=== PATIENT | male | born 1985 | race Caucasian/White ===

== ENCOUNTER 2019-05-25 17:54 | Emergency (ER) | payer MEDICAID ==
[2019-05-25] MEDS: Iopamidol 755 MG/ML 150 ML Bottle IV ONE (19:30)
[2019-05-25] MEDS: Sodium Chloride 0.9% 1,000 ML IV ONE (19:38)
[2019-05-25] MEDS: Sodium Chloride 0.9% 10 ML Syringe FLUSH PRN (19:39)
[2019-05-25] MEDS: Ondansetron 4 MG/2 ML SDV IVPUSH ONE (19:42)
[2019-05-25] MEDS: Morphine 2 MG/ML Syringe IVPUSH ONE (19:42)
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
[2019-05-25] MEDS: Sodium Chloride 0.9% 1,000 ML IV SCH (22:50)
== END 2019-05-25 23:15 ==
LOC: FB.ED 17:54
DX: K51.911 Ulcerative colitis, unspecified with rectal bleeding (principal); I26.99 Other pulmonary embolism without acute cor pulmonale; K92.1 Melena; I10 Essential (primary) hypertension; Z90.49 Acquired absence of other specified parts of digestive tract; F17.210 Nicotine dependence, cigarettes, uncomplicated; Z79.899 Other long term (current) drug therapy; Z79.01 Long term (current) use of anticoagulants; Z86.718 Personal history of other venous thrombosis and embolism
CPT/HCPCS: 36415; 71275; 74177; 80053; 81001; 83690; 83735; 84484; 85025; 85610; 85730; 86140; 93005; 96361; 96374; 96375; 99285-25; J2270; J2405; J7030; Q9967

== ENCOUNTER 2019-05-31 21:49 | Emergency (ER) | payer MEDICAID ==
[2019-05-31] MEDS ORDERED: Pantoprazole 40 MG Vial IVPUSH ONE (22:01)
[2019-05-31] MEDS ORDERED: Sodium Chloride 0.9% 10 ML Syringe FLUSH PRN (22:01)
--- NOTE | 2019-05-31 22:09 | EDM.PDOC ---
ED HPI GENERAL MEDICAL PROBLEM - General Chief Complaint: Abdominal Pain Stated Complaint: BLOOD CLOT ISSUES Time Seen by Provider: 05/31/19 22:04 Source of Information: Reports: Patient History Limitations: Reports: No Limitations - History of Present Illness INITIAL COMMENTS - FREE TEXT/NARRATIVE: Patient has a h/o Pulmonary Emboli and LLE DVT (diagnosed @5 weeks ago at [facility]). The patient also has a history of Ulcerative Colitis and was transferred from this facility to [facility] on 05/25/19 due to rectal bleeding in the setting of pulmonary emboli. He was discharged on a Prednisone taper, Lovenox and Coumadin, although it does not look like he was placed on a prophylactic PPI. Today he presents to the ED with a 2 day history of generalized abdominal pain with tarry black stool with specks of red blood. Patient believes the pain is secondary to Lovenox. He denies diarrhea. Onset Date: 05/30/19 Duration: Day(s): (2) Location: Reports: Abdomen Quality: Reports: Dull Severity: Moderate Associated Symptoms: Denies: Nausea/Vomiting - Related Data Allergies Allergy/AdvReac Type Severity Reaction Status Date / Time No Known Allergies Allergy Verified 05/25/19 19:08 Home Meds: Home Meds Enoxaparin [Lovenox] 150 mg SQ BID 05/31/19 [History] Pantoprazole Sodium [Protonix] 40 mg PO DAILY #15 tablet. 05/31/19 [Rx] Warfarin Sodium [Coumadin] 7.5 mg PO DAILY 05/31/19 [History] Past Medical History Cardiovascular History: Reports: Afib, Blood Clots/VTE/DVT, Hypertension Other Cardiovascular History: blood clot in legs Respiratory History: Reports: PE, Sleep Apnea Gastrointestinal History: Reports: Inflammatory Bowel Disease (Ulcerative colitis) Other Gastrointestinal History: ulcerative colitis Hematologic History: Reports: Anticoagulation Therapy (Has not been on his Eliquis for the past 1-1/2 weeks.) - Past Surgical History Cardiovascular Surgical History: Reports: Cardiac Ablation GI Surgical History: Reports: Appendectomy, Colonoscopy (Time 7) Social & Family History - Tobacco Use Smoking Status *Q: Current Every Day Smoker Tobacco Use Within Last Twelve Months: Cigarettes - Alcohol Use Alcohol Use History: No - Living Situation & Occupation 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 ED EXAM, GI/ABD - Physical Exam Exam: See Below Exam Limited By: No Limitations General Appearance: Alert, WD/WN, No Apparent Distress Ears: Normal External Exam Throat/Mouth: No Airway Compromise Head: Atraumatic, Normocephalic Neck: Full Range of Motion Respiratory/Chest: No Respiratory Distress, Lungs Clear, Normal Breath Sounds Cardiovascular: Regular Rate, Rhythm, No Murmur GI/Abdominal Exam: Normal Bowel Sounds, Soft, No Distention, Tender (Epigastric and RLQ) Rectal (Males) Exam: Heme - Stool, Other (Brown stool in the rectal vault) Extremities: Normal Range of Motion Neurological: Alert, Normal Cognition, No Motor/Sensory Deficits Skin Exam: Warm, Dry, Intact Course - Vital Signs Last Recorded V/S: Last Vital Signs Temp 36.8 C 05/31/19 22:30 Pulse 105 H 05/31/19 22:30 Resp 20 05/31/19 22:30 BP 118/76 05/31/19 22:30 Pulse Ox 98 05/31/19 22:30 - Orders/Labs/Meds Orders: Active Orders 24 hr Category Date Time Status Abdomen Pelvis w Cont [CT] Stat Exams 05/31/19 22:57 Ordered Sodium Chloride 0.9% [Saline Flush] Med 05/31/19 22:01 Active 10 ml FLUSH ASDIRECTED PRN Saline Lock Insert [OM.PC] Routine Oth 05/31/19 22:01 Ordered Medication Orders Sodium Chloride (Saline Flush) 10 ml FLUSH ASDIRECTED PRN PRN Reason: Keep Vein Open Last Admin: 05/31/19 22:50 Dose: 10 ml Labs: Laboratory Tests 05/31/19 05/31/19 05/31/19 Range/Units 22:15 22:15 22:15 WBC 10.4 (4.5-12.0) X10-3/uL RBC 5.02 (4.30-5.75) x10(6)uL Hgb 10.6 L (13.5-17.8) g/dL Hct 33.7 (30.0-51.3) % MCV 67.2 L (80-96) fL MCH 21.1 L (27.7-33.6) pg MCHC 31.5 L (32.2-35.4) g/dL RDW 18.4 H (11.5-15.5) % Plt Count 578 H (125-369) X10(3)uL MPV 7.1 L (7.4-10.4) fL Add Manual Diff Yes Neutrophils % (Manual) 62 (46-82) % Lymphocytes % (Manual) 23 (13-37) % Monocytes % (Manual) 5 (4-12) % Eosinophils % (Manual) 10 H (0-5) % Hypochromasia Few Anisocytosis Few Microcytosis Moderate H PT 15.1 H (8.7-11.1) INR 1.57 H (0.89-1.13) Sodium 139 (135-145) mmol/L Potassium 4.2 (3.5-5.3) mmol/L Chloride 103 (100-110) mmol/L Carbon Dioxide 29 (21-32) mmol/L BUN 14 (7-18) mg/dL Creatinine 0.9 (0.70-1.30) mg/dL Est Cr Clr Drug Dosing TNP Estimated GFR (MDRD) > 60 (>60) BUN/Creatinine Ratio 15.6 (9-20) Glucose 122 H (80-116) mg/dL Calcium 8.6 (8.6-10.2) mg/dL Total Bilirubin 0.2 (0.1-1.3) mg/dL AST 33 H D (5-25) IU/L ALT 54 H D (12-36) U/L Alkaline Phosphatase 97 (56-112) IU/L Total Protein 6.9 (6.0-8.0) g/dL Albumin 2.9 L (3.5-5.2) g/dL Globulin 4.0 g/dL Albumin/Globulin Ratio 0.7 Amylase 21 L (25-115) U/L Blood Type Gel Antibody Screen 05/31/19 Range/Units 22:15 WBC (4.5-12.0) X10-3/uL RBC (4.30-5.75) x10(6)uL Hgb (13.5-17.8) g/dL Hct (30.0-51.3) % MCV (80-96) fL MCH (27.7-33.6) pg MCHC (32.2-35.4) g/dL RDW (11.5-15.5) % Plt Count (125-369) X10(3)uL MPV (7.4-10.4) fL Add Manual Diff Neutrophils % (Manual) (46-82) % Lymphocytes % (Manual) (13-37) % Monocytes % (Manual) (4-12) % Eosinophils % (Manual) (0-5) % Hypochromasia Anisocytosis Microcytosis PT (8.7-11.1) INR (0.89-1.13) Sodium (135-145) mmol/L Potassium (3.5-5.3) mmol/L Chloride (100-110) mmol/L Carbon Dioxide (21-32) mmol/L BUN (7-18) mg/dL Creatinine (0.70-1.30) mg/dL Est Cr Clr Drug Dosing Estimated GFR (MDRD) (>60) BUN/Creatinine Ratio (9-20) Glucose (80-116) mg/dL Calcium (8.6-10.2) mg/dL Total Bilirubin (0.1-1.3) mg/dL AST (5-25) IU/L ALT (12-36) U/L Alkaline Phosphatase (56-112) IU/L Total Protein (6.0-8.0) g/dL Albumin (3.5-5.2) g/dL Globulin g/dL Albumin/Globulin Ratio Amylase (25-115) U/L Blood Type B POSITIVE Gel Antibody Screen Negative Microbiology 05/31/19 21:45 Stool Occult Blood (STEPH) - Final Stool / Feces NEGATIVE OCCULT BLOOD REFERENCE RANGE: NEGATIVE Meds: Medications Generic Name Dose Route Start Last Admin Trade Name Freq PRN Reason Stop Dose Admin Sodium Chloride 10 ml 05/31/19 22:01 05/31/19 22:50 Saline Flush FLUSH 10 ml ASDIRECTED PRN Administration Keep Vein Open Discontinued Medications Generic Name Dose Route Start Last Admin Trade Name Freq PRN Reason Stop Dose Admin Iopamidol 150 ml 05/31/19 23:14 05/31/19 23:24 Isovue-370 (76%) IV 05/31/19 23:15 Not Given ONETIME ONE Pantoprazole Sodium 40 mg 05/31/19 22:01 05/31/19 22:54 Protonix Iv IVPUSH 05/31/19 22:02 40 mg ONETIME ONE Administration - Radiology Interpretation Free Text/Narrative:: CT Abd/Pelvis w/o contrast: No acute process. ([facility]) (Patient refused IV contrast) - Re-Assessments/Exams Free Text/Narrative Re-Assessment/Exam: 05/31/19 23:45 Hb stable (10.6) when compared to 05/25/19 CBC. Departure - Departure Time of Disposition: 23:45 Disposition: Home, Self-Care 01 Condition: Good Clinical Impression: Abdominal pain Qualifiers: Abdominal location: epigastric Qualified Code(s): R10.13 - Epigastric pain - Discharge Information *PRESCRIPTION DRUG MONITORING PROGRAM REVIEWED*: No *COPY OF PRESCRIPTION DRUG MONITORING REPORT IN PATIENT NORMAN: Not Applicable Prescriptions: Pantoprazole Sodium [Protonix] 40 mg PO DAILY #15 tablet. Instructions: Abdominal Pain, Adult, [id number] Referrals: Ramirez Michelle MD [Physician] - 1 Day Forms: ED Department Discharge Additional Instructions: Continue Coumadin, Lovenox and Prednisone as prescribed. Fill the prescription for Protonix and take as directed. Follow up with Dr. Michelle and the Coumadin clinic tomorrow. Return to the ER as needed. - My Orders Last 24 Hours: My Active Orders 05/31/19 22:01 Sodium Chloride 0.9% [Saline Flush] 10 ml FLUSH ASDIRECTED PRN Saline Lock Insert [OM.PC] Routine 05/31/19 22:57 Abdomen Pelvis w Cont [CT] Stat - Assessment/Plan Last 24 Hours: My Active Orders 05/31/19 22:01 Sodium Chloride 0.9% [Saline Flush] 10 ml FLUSH ASDIRECTED PRN Saline Lock Insert [OM.PC] Routine 05/31/19 22:57 Abdomen Pelvis w Cont [CT] Stat
[2019-05-31] MEDS ORDERED: Iopamidol 755 MG/ML 150 ML Bottle IV ONE (23:14)
== END 2019-06-01 | disposition home or self-care (01) ==
LOC: FB.ED 21:49
DX: R10.13 Epigastric pain (principal); I10 Essential (primary) hypertension; I48.91 Unspecified atrial fibrillation; F17.210 Nicotine dependence, cigarettes, uncomplicated; Z79.01 Long term (current) use of anticoagulants
CPT/HCPCS: 36415; 74177; 80053; 82150; 82272; 85025; 85610; 86850; 86900; 86901; 96374; 99284; C9113

== ENCOUNTER 2019-09-04 09:41 | Inpatient (IN) | payer MEDICAID, OTHER ==
[2019-09-04] MEDS ORDERED: Sodium Chloride 0.9% 10 ML Syringe FLUSH PRN (09:43)
[2019-09-04] MEDS ORDERED: Iopamidol 755 Mg/ML 100 ML Bottle IV ONE (09:50)
--- NOTE | 2019-09-04 10:02 | EDM.PDOC ---
ED HPI GENERAL MEDICAL PROBLEM - General Chief Complaint: Cardiovascular Problem Stated Complaint: SOB AND WEAKNESS Time Seen by Provider: 09/04/19 09:57 Source of Information: Reports: Patient History Limitations: Reports: No Limitations - History of Present Illness INITIAL COMMENTS - FREE TEXT/NARRATIVE: Patient was diagnosed with pulmonary emboli and LLE DVT in 04/2019 @[facility], was prescribed Eliquis, however insurance did not cover this medication. Coumadin and Lovenox were prescribed instead, he ran out of this medication sometime in 06/02, but did not refill it. He presents to the ED today for worsening chest pain and shortness of breath x 1 week. Patient states feels similar to symptoms he experienced when first diagnosed with a pulmonary embolus. He denies h/o clotting disorder. - Related Data Allergies Allergy/AdvReac Type Severity Reaction Status Date / Time No Known Allergies Allergy Verified 05/31/19 23:52 Past Medical History Cardiovascular History: Reports: Afib, Blood Clots/VTE/DVT, Hypertension. Denies: CAD Respiratory History: Reports: PE, Sleep Apnea Gastrointestinal History: Reports: Inflammatory Bowel Disease (Ulcerative colitis) Other Gastrointestinal History: ulcerative colitis Other Genitourinary History: Gout. 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 Musculoskeletal: Reports: Leg Pain ED EXAM, GENERAL - Physical Exam Exam: See Below Exam Limited By: No Limitations General Appearance: Alert, WD/WN, No Apparent Distress Nose: Normal Inspection Throat/Mouth: Normal Inspection, No Airway Compromise Head: Atraumatic, Normocephalic Neck: Full Range of Motion Respiratory/Chest: No Respiratory Distress, Lungs Clear, Normal Breath Sounds Cardiovascular: Regular Rate, Rhythm, No Murmur GI/Abdominal: Normal Bowel Sounds, Soft, Non-Tender, No Distention Extremities: Normal Range of Motion, Pedal Edema, Other (left leg tenderness) Neurological: Alert, Normal Cognition, No Motor/Sensory Deficits Psychiatric: Normal Affect, Normal Mood Skin Exam: Warm, Dry, Intact EKG INTERPRETATION EKG Date: 09/04/19 Time: 09:55 Rhythm: NSR Rate (Beats/Min): 93 [place]: Normal P-Wave: Present QRS: Normal ST-T: Normal QT: Normal Comparison: No Change (05/25/19) Course - Vital Signs Last Recorded V/S: Last Vital Signs Temp 36.7 C 09/04/19 10:11 Pulse 93 09/04/19 10:11 Resp 20 09/04/19 10:33 BP 144/92 H 09/04/19 10:33 Pulse Ox 94 L 09/04/19 10:33 - Orders/Labs/Meds Orders: Active Orders 24 hr Category Date Time Status EKG Documentation Completion [RC] ASDIRECTED Care 09/04/19 09:42 Active Ang Chest [CT] Stat Exams 09/04/19 09:43 Taken Sodium Chloride 0.9% [Saline Flush] Med 09/04/19 09:43 Active 10 ml FLUSH ASDIRECTED PRN Saline Lock Insert [OM.PC] Routine Oth 09/04/19 09:43 Ordered EKG 12 Lead [EK] Stat Ther 09/04/19 09:42 Ordered Medication Orders Sodium Chloride (Saline Flush) 10 ml FLUSH ASDIRECTED PRN PRN Reason: Keep Vein Open Labs: Laboratory Tests 09/04/19 09/04/19 09/04/19 Range/Units 10:00 10:00 10:00 WBC 7.4 (4.5-12.0) X10-3/uL RBC 5.14 (4.30-5.75) x10(6)uL Hgb 10.5 L (13.5-17.8) g/dL Hct 34.2 (30.0-51.3) % MCV 66.5 L (80-96) fL MCH 20.4 L (27.7-33.6) pg MCHC 30.7 L (32.2-35.4) g/dL RDW 16.2 H (11.5-15.5) % Plt Count 528 H (125-369) X10(3)uL MPV 6.6 L (7.4-10.4) fL Neut % (Auto) 70.7 (46-82) % Lymph % (Auto) 14.5 (13-37) % [place] % (Auto) 9.3 (4-12) % Eos % (Auto) 5 (1.0-5.0) % Baso % (Auto) 1 (0-2) % Neut # (Auto) 5.2 (1.6-8.3) # Lymph # (Auto) 1.1 (0.6-5.0) # [place] # (Auto) 0.7 (0.0-1.3) # Eos # (Auto) 0.4 (0.0-0.8) # Baso # (Auto) 0.0 (0.0-0.2) # PT 10.3 (8.7-11.1) INR 1.06 (0.89-1.13) APTT 24.5 (24.4-33.2) SECONDS D-Dimer, Quantitative (0.0-0.59) mg/LFEU Sodium 140 (135-145) mmol/L Potassium 4.2 (3.5-5.3) mmol/L Chloride 102 (100-110) mmol/L Carbon Dioxide 29 (21-32) mmol/L BUN 7 (7-18) mg/dL Creatinine 1.0 (0.70-1.30) mg/dL Est Cr Clr Drug Dosing 125.58 mL/min Estimated GFR (MDRD) > 60 (>60) BUN/Creatinine Ratio 7.0 L (9-20) Glucose 126 H (80-116) mg/dL Calcium 9.7 (8.6-10.2) mg/dL Total Bilirubin 0.4 (0.1-1.3) mg/dL AST 17 D (5-25) IU/L ALT 23 D (12-36) U/L Alkaline Phosphatase 94 (56-112) IU/L Troponin I (4.0-60.3) pg/mL Total Protein 8.0 (6.0-8.0) g/dL Albumin 2.8 L (3.5-5.2) g/dL Globulin 5.2 g/dL Albumin/Globulin Ratio 0.5 09/04/19 09/04/19 Range/Units 10:00 10:00 WBC (4.5-12.0) X10-3/uL RBC (4.30-5.75) x10(6)uL Hgb (13.5-17.8) g/dL Hct (30.0-51.3) % MCV (80-96) fL MCH (27.7-33.6) pg MCHC (32.2-35.4) g/dL RDW (11.5-15.5) % Plt Count (125-369) X10(3)uL MPV (7.4-10.4) fL Neut % (Auto) (46-82) % Lymph % (Auto) (13-37) % [place] % (Auto) (4-12) % Eos % (Auto) (1.0-5.0) % Baso % (Auto) (0-2) % Neut # (Auto) (1.6-8.3) # Lymph # (Auto) (0.6-5.0) # [place] # (Auto) (0.0-1.3) # Eos # (Auto) (0.0-0.8) # Baso # (Auto) (0.0-0.2) # PT (8.7-11.1) INR (0.89-1.13) APTT (24.4-33.2) SECONDS D-Dimer, Quantitative 3.87 H (0.0-0.59) mg/LFEU Sodium (135-145) mmol/L Potassium (3.5-5.3) mmol/L Chloride (100-110) mmol/L Carbon Dioxide (21-32) mmol/L BUN (7-18) mg/dL Creatinine (0.70-1.30) mg/dL Est Cr Clr Drug Dosing mL/min Estimated GFR (MDRD) (>60) BUN/Creatinine Ratio (9-20) Glucose (80-116) mg/dL Calcium (8.6-10.2) mg/dL Total Bilirubin (0.1-1.3) mg/dL AST (5-25) IU/L ALT (12-36) U/L Alkaline Phosphatase (56-112) IU/L Troponin I 11.5 (4.0-60.3) pg/mL Total Protein (6.0-8.0) g/dL Albumin (3.5-5.2) g/dL Globulin g/dL Albumin/Globulin Ratio Meds: Medications Generic Name Dose Route Start Last Admin Trade Name Freq PRN Reason Stop Dose Admin Sodium Chloride 10 ml 09/04/19 09:43 Saline Flush FLUSH ASDIRECTED PRN Keep Vein Open Discontinued Medications Generic Name Dose Route Start Last Admin Trade Name Freq PRN Reason Stop Dose Admin Enoxaparin Sodium 150 mg 09/04/19 10:53 Lovenox SUBCUT 09/04/19 10:54 ONETIME ONE Iopamidol 100 ml 09/04/19 09:50 09/04/19 10:16 Isovue-370 (76%) IV 09/04/19 09:51 85 ml . DIRECTED ONE Administration - Radiology Interpretation Free Text/Narrative:: CTA Chest: Relatively significant burden of acute bilateral pulmonary emboli without evidence of right heart strain. ([facility], Dr. Ortiz) - Re-Assessments/Exams Free Text/Narrative Re-Assessment/Exam: 09/04/19 11:07 Sa02 88% RA while sleeping, up to 100% on 2L 02. Dr. Martinez agrees to admit patient to [facility]. Departure - Departure Time of Disposition: 11:06 Disposition: Admitted As Inpatient 67 Condition: Fair Clinical Impression: Pulmonary embolism without acute cor pulmonale Qualifiers: Pulmonary embolism type: other Chronicity: acute Qualified Code(s): I26.99 - Other pulmonary embolism without acute cor pulmonale Referrals: PCP,None [Primary Care Provider] - Forms: ED Department Discharge Sepsis Event Note - Focused Exam Vital Signs: Vital Signs Temp Pulse Resp BP Pulse Ox 09/04/19 10:33 20 144/92 H 94 L 09/04/19 10:11 36.7 C 93 20 123/87 94 L Date Exam was Performed: 09/04/19 Time Exam was Performed: 11:01 - My Orders Last 24 Hours: My Active Orders 09/04/19 09:42 EKG Documentation Completion [RC] ASDIRECTED EKG 12 Lead [EK] Stat 09/04/19 09:43 Ang Chest [CT] Stat Sodium Chloride 0.9% [Saline Flush] 10 ml FLUSH ASDIRECTED PRN Saline Lock Insert [OM.PC] Routine - Assessment/Plan Last 24 Hours: My Active Orders 09/04/19 09:42 EKG Documentation Completion [RC] ASDIRECTED EKG 12 Lead [EK] Stat 09/04/19 09:43 Ang Chest [CT] Stat Sodium Chloride 0.9% [Saline Flush] 10 ml FLUSH ASDIRECTED PRN Saline Lock Insert [OM.PC] Routine
[2019-09-04] MEDS ORDERED: Enoxaparin 150 MG/1 ML Syringe SUBCUT ONE (10:53)
[2019-09-04] MEDS ORDERED: HYDROmorphone 2 MG/ML SDV IVPUSH PRN (11:14)
[2019-09-04] MEDS ORDERED: Ondansetron 4 MG Tab.DIS PO PRN (11:14)
[2019-09-04] MEDS ORDERED: Pantoprazole 40 MG Vial IVPUSH SCH (11:30)
--- NOTE | 2019-09-04 13:04 | PCM.HP.2 ---
H&P History of Present Illness - General Date of Service: 09/04/19 Admit Problem/Dx: Admission Diagnosis/Problem Admission Diagnosis/Problem Pulmonary embolism Source of Information: Patient History Limitations: Reports: No Limitations - History of Present Illness Initial Comments - Free Text/Narative: This is a 34-year-old male patient the came into the ER with chest pain and shortness of breath. He was found to have a pulmonary embolism. He has a history of pulmonary embolisms starting way back in 2014. He's been on Eliquis and also Coumadin and Lantus. He says he had a PE in [place] last fall. He says he moved up. He stayed with a friend. He states that they could get him his Coumadin and off it for a week and a half. Last week he's been having some chest pain and some shortness of breath. He also has some runny nose and a cough. Denies leg swelling. by radiology is bilateral PE. He states he does not have a doctor in town. He says James is managing his Coumadin. He says he just quit giving it to him. - Related Data Allergies/Adverse Reactions: Allergies Allergy/AdvReac Type Severity Reaction Status Date / Time No Known Allergies Allergy Verified 05/31/19 23:52 Past Medical History HEENT History: Reports: None Cardiovascular History: Reports: Afib, Blood Clots/VTE/DVT, Hypertension. Denies: CAD Other Cardiovascular History: blood clot in legs Respiratory History: Reports: PE, Sleep Apnea Gastrointestinal History: Reports: Inflammatory Bowel Disease (Ulcerative colitis) Other Gastrointestinal History: ulcerative colitis Genitourinary History: Reports: Other (See Below) Other Genitourinary History: Gout. Musculoskeletal History: Reports: None Neurological History: Reports: None Psychiatric History: Reports: None Endocrine/Metabolic History: Reports: None Hematologic History: Reports: Anticoagulation Therapy (Has not been on his Eliquis for the past 1-1/2 weeks.) Immunologic History: Reports: None Oncologic (Cancer) History: Reports: None Dermatologic History: Reports: None - Infectious Disease History Infectious Disease History: Reports: Chicken Pox - Past Surgical History Cardiovascular Surgical History: Reports: Cardiac Ablation GI Surgical History: Reports: Appendectomy, Colonoscopy (Time 7) Social & Family History - Family History Family Medical History: Noncontributory - Tobacco Use Smoking Status *Q: Former Smoker Years of Tobacco use: 10 Packs/Tins Daily: 0 Used Tobacco, but Quit: No Month/Year Tobacco Last Used: 06/2019 Second Hand Smoke Exposure: No - Caffeine Use Caffeine Use: Reports: Soda - Recreational Drug Use Recreational Drug Use: No - Living Situation & Occupation 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 Denies: Sputum, Hemoptysis Cardiovascular: Reports: Chest Pain. Denies: Edema Gastrointestinal: Reports: No Symptoms Genitourinary: Reports: No Symptoms Musculoskeletal: Reports: No Symptoms Skin: Reports: No Symptoms Psychiatric: Reports: No Symptoms Neurological: Reports: No Symptoms Hematologic/Lymphatic: Reports: No Symptoms Immunologic: Reports: No Symptoms Exam - Exam Exam: See Below - Vital Signs Vital Signs: Last Vital Signs Temp 98.0 F 09/04/19 10:11 Pulse 99 09/04/19 12:01 Resp 18 09/04/19 12:01 BP 138/97 H 09/04/19 12:01 Pulse Ox 100 09/04/19 12:01 Weight: 321 lb 11.2 oz - Exam General: Alert, Oriented, Cooperative HEENT: Hearing Intact, Mucosa Moist & [place], Posterior Pharynx Clear, TMs Clear Neck: Supple, Trachea Midline Lungs: Clear to Auscultation, Normal Respiratory Effort. No: Crackles, Rales, Rhonchi Cardiovascular: Regular Rate, Regular Rhythm. No: Systolic Murmur, Diastolic Murmur GI/Abdominal Exam: Normal Bowel Sounds, Soft, Non-Tender, No Organomegaly, No Distention, No Abnormal Bruit, No Mass Back Exam: Normal Inspection, Full Range of Motion Extremities: Normal Inspection, Non-Tender Skin: Warm, Dry, Intact Neurological: Normal Speech, Normal Tone Neuro Extensive - Mental Status: Alert, Oriented x3, Normal Cognition Psychiatric: Alert, Other (Affect is blunt) - Patient Data Lab Results Last 24 hrs: Laboratory Results - last 24 hr 09/04/19 09/04/19 09/04/19 Range/Units 10:00 10:00 10:00 WBC 7.4 (4.5-12.0) X10-3/uL RBC 5.14 (4.30-5.75) x10(6)uL Hgb 10.5 L (13.5-17.8) g/dL Hct 34.2 (30.0-51.3) % MCV 66.5 L (80-96) fL MCH 20.4 L (27.7-33.6) pg MCHC 30.7 L (32.2-35.4) g/dL RDW 16.2 H (11.5-15.5) % Plt Count 528 H (125-369) X10(3)uL MPV 6.6 L (7.4-10.4) fL Neut % (Auto) 70.7 (46-82) % Lymph % (Auto) 14.5 (13-37) % O'Brien % (Auto) 9.3 (4-12) % Eos % (Auto) 5 (1.0-5.0) % Baso % (Auto) 1 (0-2) % Neut # (Auto) 5.2 (1.6-8.3) # Lymph # (Auto) 1.1 (0.6-5.0) # O'Brien # (Auto) 0.7 (0.0-1.3) # Eos # (Auto) 0.4 (0.0-0.8) # Baso # (Auto) 0.0 (0.0-0.2) # PT 10.3 (8.7-11.1) INR 1.06 (0.89-1.13) APTT 24.5 (24.4-33.2) SECONDS D-Dimer, Quantitative (0.0-0.59) mg/LFEU Sodium 140 (135-145) mmol/L Potassium 4.2 (3.5-5.3) mmol/L Chloride 102 (100-110) mmol/L Carbon Dioxide 29 (21-32) mmol/L BUN 7 (7-18) mg/dL Creatinine 1.0 (0.70-1.30) mg/dL Est Cr Clr Drug Dosing 125.58 mL/min Estimated GFR (MDRD) > 60 (>60) BUN/Creatinine Ratio 7.0 L (9-20) Glucose 126 H (80-116) mg/dL Calcium 9.7 (8.6-10.2) mg/dL Total Bilirubin 0.4 (0.1-1.3) mg/dL AST 17 D (5-25) IU/L ALT 23 D (12-36) U/L Alkaline Phosphatase 94 (56-112) IU/L Troponin I (4.0-60.3) pg/mL Total Protein 8.0 (6.0-8.0) g/dL Albumin 2.8 L (3.5-5.2) g/dL Globulin 5.2 g/dL Albumin/Globulin Ratio 0.5 09/04/19 09/04/19 Range/Units 10:00 10:00 WBC (4.5-12.0) X10-3/uL RBC (4.30-5.75) x10(6)uL Hgb (13.5-17.8) g/dL Hct (30.0-51.3) % MCV (80-96) fL MCH (27.7-33.6) pg MCHC (32.2-35.4) g/dL RDW (11.5-15.5) % Plt Count (125-369) X10(3)uL MPV (7.4-10.4) fL Neut % (Auto) (46-82) % Lymph % (Auto) (13-37) % O'Brien % (Auto) (4-12) % Eos % (Auto) (1.0-5.0) % Baso % (Auto) (0-2) % Neut # (Auto) (1.6-8.3) # Lymph # (Auto) (0.6-5.0) # O'Brien # (Auto) (0.0-1.3) # Eos # (Auto) (0.0-0.8) # Baso # (Auto) (0.0-0.2) # PT (8.7-11.1) INR (0.89-1.13) APTT (24.4-33.2) SECONDS D-Dimer, Quantitative 3.87 H (0.0-0.59) mg/LFEU Sodium (135-145) mmol/L Potassium (3.5-5.3) mmol/L Chloride (100-110) mmol/L Carbon Dioxide (21-32) mmol/L BUN (7-18) mg/dL Creatinine (0.70-1.30) mg/dL Est Cr Clr Drug Dosing mL/min Estimated GFR (MDRD) (>60) BUN/Creatinine Ratio (9-20) Glucose (80-116) mg/dL Calcium (8.6-10.2) mg/dL Total Bilirubin (0.1-1.3) mg/dL AST (5-25) IU/L ALT (12-36) U/L Alkaline Phosphatase (56-112) IU/L Troponin I 11.5 (4.0-60.3) pg/mL Total Protein (6.0-8.0) g/dL Albumin (3.5-5.2) g/dL Globulin g/dL Albumin/Globulin Ratio Result Diagrams: 09/04/19 10:00 09/04/19 10:00 Sepsis Event Note - Evaluation Sepsis Screening Result: No Definite Risk - Focused Exam Vital Signs: Vital Signs Temp Pulse Resp BP Pulse Ox Pulse Ox 09/04/19 12:01 99 18 138/97 H 100 09/04/19 11:05 20 129/78 100 09/04/19 11:02 100 09/04/19 10:33 20 144/92 H 94 L 09/04/19 10:11 98.0 F 93 20 123/87 94 L Date Exam was Performed: 09/04/19 Time Exam was Performed: 12:57 - Problem List (1) Pulmonary embolism without acute cor pulmonale SNOMED Code(s): 42821091 ICD Code: I26.99 - OTHER PULMONARY EMBOLISM WITHOUT ACUTE COR PULMONALE Status: Acute Current Visit: Yes Qualifiers: Pulmonary embolism type: other Chronicity: acute Qualified Code(s): I26.99 - Other pulmonary embolism without acute cor pulmonale Problem List Initiated/Reviewed/Updated: Yes Orders Last 24hrs: Active Orders 24 hr Category Date Time Status Admission Status [Patient Status] [ADT] Routine ADT 09/04/19 11:01 Active Ambulate [RC] PER UNIT ROUTINE Care 09/04/19 11:16 Active Anticoag Warfarin Education *Q [RC] PER UNIT ROUTINE Care 09/04/19 11:14 Active Bedrest Bathroom Privileges [RC] ASDIRECTED Care 09/04/19 11:14 Active Cardiac Monitoring [RC] CONTINUOUS Care 09/04/19 11:15 Active Height and Weight [RC] DAILY Care 09/04/19 11:14 Active Intake and Output [RC] QSHIFT Care 09/04/19 11:15 Active Notify Provider Vital Signs [RC] ASDIRECTED Care 09/04/19 11:15 Active Oxygen Therapy [RC] PRN Care 09/04/19 11:15 Active Pulse Oximetry [RC] CONTINUOUS Care 09/04/19 11:15 Active VTE/DVT Education [RC] Per Unit Routine Care 09/04/19 11:15 Active Vital Signs [RC] QSHIFT Care 09/04/19 11:15 Active Consult to Case Management/Geotechnicial Properties Technician [CONS] Cons 09/04/19 11:14 Active Routine Regular Diet [DIET] Diet 09/04/19 Dinner Active Ang Chest [CT] Stat Exams 09/04/19 09:43 Taken BASIC METABOLIC PANEL,BMP [CHEM] AM Lab 09/05/19 05:11 Ordered CBC WITH AUTO DIFF [HEME] AM Lab 09/05/19 05:11 Ordered INR,PT,PROTHROMBIN TIME [COAG] AM Lab 09/05/19 05:11 Ordered Enoxaparin [Lovenox] Med 09/04/19 23:00 Ordered 150 mg SUBCUT Q12H HYDROmorphone [Dilaudid] Med 09/04/19 11:14 Active 0.5 mg IVPUSH Q4H PRN Ondansetron [Zofran ODT] Med 09/04/19 11:14 Active 4 mg PO Q8H PRN Pantoprazole [ProTONIX IV] Med 09/04/19 11:30 Active 40 mg IVPUSH DAILY Sodium Chloride 0.9% [Saline Flush] Med 09/04/19 09:43 Active 10 ml FLUSH ASDIRECTED PRN Warfarin [Coumadin] Med 09/05/19 09:00 Ordered 5 mg PO DAILY Saline Lock Insert [OM.PC] Routine Oth 09/04/19 09:43 Ordered Resuscitation Status Routine Resus Stat 09/04/19 11:14 Ordered EKG 12 Lead [EK] Stat Ther 09/04/19 09:42 Ordered Medication Orders Enoxaparin Sodium (Lovenox) 150 mg SUBCUT Q12H [facility] Hydromorphone HCl (Dilaudid) 0.5 mg IVPUSH Q4H PRN PRN Reason: Pain (severe 7-10) Ondansetron HCl (Zofran Odt) 4 mg PO Q8H PRN PRN Reason: nausea, able to take PO Pantoprazole Sodium (Protonix Iv) 40 mg IVPUSH DAILY [facility] Last Admin: 09/04/19 12:28 Dose: 40 mg Sodium Chloride (Saline Flush) 10 ml FLUSH ASDIRECTED PRN PRN Reason: Keep Vein Open Last Admin: 09/04/19 12:30 Dose: 10 ml Warfarin Sodium (Coumadin) 5 mg PO DAILY [facility] Assessment/Plan Comment:: 1. Admit for inpatient 2. Lovenox subcutaneous every 12 hours. Pharmacy to dose. 3. Start Coumadin today. The pharmacy is going to find out what dose he is on and start that dose. 4. O2 to keep sats greater 90%. 5. Telemetry 6. Up ad amalia. 7. Full code 8. Regular diet 9. Repeat CBC and BMP in the a.m. - Mortality Measure Prognosis:: Good
[2019-09-04] MEDS ORDERED: Warfarin Sliding Scale PO SCH (16:00)
[2019-09-04] MEDS ORDERED: Warfarin 5 MG Tab PO ONE (16:00)
[2019-09-04] MEDS ORDERED: Enoxaparin 100 MG/1 ML Syringe SUBCUT SCH (22:00)
[2019-09-04] MEDS ORDERED: Enoxaparin 40 MG/0.4 ML Syringe SUBCUT SCH ×2 (22:00→23:00)
[2019-09-04] MEDS: Enoxaparin 150 MG/1 ML Syringe SUBCUT SCH (23:30)
--- NOTE | 2019-09-05 07:56 | PCM.PN ---
- General Info Date of Service: 09/05/19 Admission Dx/Problem (Free Text): Patient states his breathing is better. Still a little chest pain but that's improved. His a leg swelling states bilateral. He said he had tough time sleeping last night and nothing was ordered for sleeping. He denies fevers, chills, palpitations. The pharmacist stated that they called [facility] who is monitoring his Coumadin. He was sent home after his PE from there and he did not fill his medications. He was on Coumadin and Lovenox. - Patient Data Vitals - Most Recent: Last Vital Signs Temp 98.2 F 09/04/19 23:48 Pulse 80 09/04/19 23:48 Resp 16 09/04/19 23:48 BP 151/95 H 09/04/19 23:48 Pulse Ox 100 09/04/19 23:48 Weight - Most Recent: 321 lb 11.2 oz I&O - Last 24 Hours: Intake & Output 09/04/19 09/05/19 09/05/19 22:59 06:59 14:59 Intake Total 1025 Balance 1025 Lab Results Last 24 Hours: Laboratory Results - last 24 hr 09/04/19 09/04/19 09/04/19 Range/Units 10:00 10:00 10:00 WBC 7.4 (4.5-12.0) X10-3/uL RBC 5.14 (4.30-5.75) x10(6)uL Hgb 10.5 L (13.5-17.8) g/dL Hct 34.2 (30.0-51.3) % MCV 66.5 L (80-96) fL MCH 20.4 L (27.7-33.6) pg MCHC 30.7 L (32.2-35.4) g/dL RDW 16.2 H (11.5-15.5) % Plt Count 528 H (125-369) X10(3)uL MPV 6.6 L (7.4-10.4) fL Neut % (Auto) 70.7 (46-82) % Lymph % (Auto) 14.5 (13-37) % [place] % (Auto) 9.3 (4-12) % Eos % (Auto) 5 (1.0-5.0) % Baso % (Auto) 1 (0-2) % Neut # (Auto) 5.2 (1.6-8.3) # Lymph # (Auto) 1.1 (0.6-5.0) # Davison # (Auto) 0.7 (0.0-1.3) # Eos # (Auto) 0.4 (0.0-0.8) # Baso # (Auto) 0.0 (0.0-0.2) # PT 10.3 (8.7-11.1) INR 1.06 (0.89-1.13) APTT 24.5 (24.4-33.2) SECONDS D-Dimer, Quantitative (0.0-0.59) mg/LFEU Sodium 140 (135-145) mmol/L Potassium 4.2 (3.5-5.3) mmol/L Chloride 102 (100-110) mmol/L Carbon Dioxide 29 (21-32) mmol/L BUN 7 (7-18) mg/dL Creatinine 1.0 (0.70-1.30) mg/dL Est Cr Clr Drug Dosing 125.58 mL/min Estimated GFR (MDRD) > 60 (>60) BUN/Creatinine Ratio 7.0 L (9-20) Glucose 126 H (80-116) mg/dL Calcium 9.7 (8.6-10.2) mg/dL Total Bilirubin 0.4 (0.1-1.3) mg/dL AST 17 D (5-25) IU/L ALT 23 D (12-36) U/L Alkaline Phosphatase 94 (56-112) IU/L Troponin I (4.0-60.3) pg/mL Total Protein 8.0 (6.0-8.0) g/dL Albumin 2.8 L (3.5-5.2) g/dL Globulin 5.2 g/dL Albumin/Globulin Ratio 0.5 09/04/19 09/04/19 09/05/19 Range/Units 10:00 10:00 06:23 WBC 9.5 (4.5-12.0) X10-3/uL RBC 4.89 (4.30-5.75) x10(6)uL Hgb 10.0 L (13.5-17.8) g/dL Hct 32.4 (30.0-51.3) % MCV 66.3 L (80-96) fL MCH 20.5 L (27.7-33.6) pg MCHC 30.9 L (32.2-35.4) g/dL RDW 16.1 H (11.5-15.5) % Plt Count 478 H (125-369) X10(3)uL MPV 6.8 L (7.4-10.4) fL Neut % (Auto) 63.5 (46-82) % Lymph % (Auto) 19.4 (13-37) % [place] % (Auto) 10.9 (4-12) % Eos % (Auto) 6 H (1.0-5.0) % Baso % (Auto) 1 (0-2) % Neut # (Auto) 6.1 (1.6-8.3) # Lymph # (Auto) 1.8 (0.6-5.0) # [place]ison # (Auto) 1.0 (0.0-1.3) # Eos # (Auto) 0.5 (0.0-0.8) # Baso # (Auto) 0.1 (0.0-0.2) # PT (8.7-11.1) INR (0.89-1.13) APTT (24.4-33.2) SECONDS D-Dimer, Quantitative 3.87 H (0.0-0.59) mg/LFEU Sodium (135-145) mmol/L Potassium (3.5-5.3) mmol/L Chloride (100-110) mmol/L Carbon Dioxide (21-32) mmol/L BUN (7-18) mg/dL Creatinine (0.70-1.30) mg/dL Est Cr Clr Drug Dosing mL/min Estimated GFR (MDRD) (>60) BUN/Creatinine Ratio (9-20) Glucose (80-116) mg/dL Calcium (8.6-10.2) mg/dL Total Bilirubin (0.1-1.3) mg/dL AST (5-25) IU/L ALT (12-36) U/L Alkaline Phosphatase (56-112) IU/L Troponin I 11.5 (4.0-60.3) pg/mL Total Protein (6.0-8.0) g/dL Albumin (3.5-5.2) g/dL Globulin g/dL Albumin/Globulin Ratio 09/05/19 09/05/19 Range/Units 06:23 06:23 WBC (4.5-12.0) X10-3/uL RBC (4.30-5.75) x10(6)uL Hgb (13.5-17.8) g/dL Hct (30.0-51.3) % MCV (80-96) fL MCH (27.7-33.6) pg MCHC (32.2-35.4) g/dL RDW (11.5-15.5) % Plt Count (125-369) X10(3)uL MPV (7.4-10.4) fL Neut % (Auto) (46-82) % Lymph % (Auto) (13-37) % Davison % (Auto) (4-12) % Eos % (Auto) (1.0-5.0) % Baso % (Auto) (0-2) % Neut # (Auto) (1.6-8.3) # Lymph # (Auto) (0.6-5.0) # Davison # (Auto) (0.0-1.3) # Eos # (Auto) (0.0-0.8) # Baso # (Auto) (0.0-0.2) # PT 10.3 (8.7-11.1) INR 1.06 (0.89-1.13) APTT (24.4-33.2) SECONDS D-Dimer, Quantitative (0.0-0.59) mg/LFEU Sodium 141 (135-145) mmol/L Potassium 4.4 (3.5-5.3) mmol/L Chloride 102 (100-110) mmol/L Carbon Dioxide 31 (21-32) mmol/L BUN 8 (7-18) mg/dL Creatinine 1.0 (0.70-1.30) mg/dL Est Cr Clr Drug Dosing 125.58 mL/min Estimated GFR (MDRD) > 60 (>60) BUN/Creatinine Ratio 8.0 L (9-20) Glucose 111 (80-116) mg/dL Calcium 9.3 (8.6-10.2) mg/dL Total Bilirubin (0.1-1.3) mg/dL AST (5-25) IU/L ALT (12-36) U/L Alkaline Phosphatase (56-112) IU/L Troponin I (4.0-60.3) pg/mL Total Protein (6.0-8.0) g/dL Albumin (3.5-5.2) g/dL Globulin g/dL Albumin/Globulin Ratio Med Orders - Current: Current Medications Enoxaparin Sodium (Lovenox) 150 mg SUBCUT Q12H [facility] Last Admin: 09/04/19 23:30 Dose: 150 mg Sodium Chloride (Saline Flush) 10 ml FLUSH ASDIRECTED PRN PRN Reason: Keep Vein Open Last Admin: 09/04/19 12:30 Dose: 10 ml Tramadol HCl (Ultram) 50 mg PO Q6H PRN PRN Reason: Pain Warfarin Sodium (Coumadin Sliding Scale) 1 each PO 1600 [facility] Warfarin Sodium (Coumadin) 10 mg PO ONETIME ONE Stop: 09/05/19 16:01 Zolpidem Tartrate (Ambien) 5 mg PO BEDTIME PRN PRN Reason: Insomnia Discontinued Medications Enoxaparin Sodium (Lovenox) 150 mg SUBCUT ONETIME ONE Stop: 09/04/19 10:54 Last Admin: 09/04/19 11:04 Dose: 150 mg Hydromorphone HCl (Dilaudid) 0.5 mg IVPUSH Q4H PRN PRN Reason: Pain (severe 7-10) Iopamidol (Isovue-370 (76%)) 100 ml IV . DIRECTED ONE Stop: 09/04/19 09:51 Last Admin: 09/04/19 10:16 Dose: 85 ml Ondansetron HCl (Zofran Odt) 4 mg PO Q8H PRN PRN Reason: nausea, able to take PO Pantoprazole Sodium (Protonix Iv) 40 mg IVPUSH DAILY [facility] Last Admin: 09/04/19 12:28 Dose: 40 mg Warfarin Sodium (Coumadin) 10 mg PO ONETIME ONE Stop: 09/04/19 16:01 Last Admin: 09/04/19 16:25 Dose: 10 mg - Exam General: Alert, Oriented, Cooperative Lungs: Clear to Auscultation, Normal Respiratory Effort Cardiovascular: Regular Rate, Regular Rhythm, No Murmurs Extremities: Other (Some mildly swelling bilateral. Patient is obese and there is no pitting.) Skin: Warm Neurological: Normal Speech Psy/Mental Status: Alert Sepsis Event Note - Evaluation Sepsis Screening Result: No Definite Risk - Focused Exam Vital Signs: Vital Signs Temp Pulse Resp BP Pulse Ox 09/04/19 23:48 98.2 F 80 16 151/95 H 100 09/04/19 20:30 98.5 F 98 16 129/86 98 Date Exam was Performed: 09/05/19 Time Exam was Performed: 07:52 - Problem List & Annotations (1) Pulmonary embolism without acute cor pulmonale SNOMED Code(s): 55093270 Code(s): I26.99 - OTHER PULMONARY EMBOLISM WITHOUT ACUTE COR PULMONALE Status: Acute Current Visit: Yes Qualifiers: Pulmonary embolism type: other Chronicity: acute Qualified Code(s): I26.99 - Other pulmonary embolism without acute cor pulmonale - Problem List Review Problem List Initiated/Reviewed/Updated: Yes - My Orders Last 24 Hours: My Active Orders 09/04/19 13:05 Up ad Vickie [RC] ASDIRECTED 09/04/19 16:00 Warfarin Sliding Scale [Coumadin Sliding Scale] 1 each PO 1600 09/04/19 23:00 Enoxaparin [Lovenox] 150 mg SUBCUT Q12H 09/05/19 07:50 Zolpidem [Ambien] 5 mg PO BEDTIME PRN traMADol [Ultram] 50 mg PO Q6H PRN 09/05/19 16:00 Warfarin [Coumadin] 10 mg PO ONETIME ONE 09/06/19 06:00 INR,PT,PROTHROMBIN TIME [COAG] 0600 09/07/19 06:00 INR,PT,PROTHROMBIN TIME [COAG] 0600 09/08/19 06:00 INR,PT,PROTHROMBIN TIME [COAG] 0600 09/09/19 06:00 INR,PT,PROTHROMBIN TIME [COAG] 0609/10/19 06:00 INR,PT,PROTHROMBIN TIME [COAG] 0600 - Plan Plan:: 1. Ambien 5 mg by mouth daily at bedtime urine for insomnia. 2. Up ad vickie. 3. Continue Lovenox and Coumadin. Coumadin is managed by the pharmacist. 4. Continue daily INRs. 5. DC Hydromorph and Protonix and start some tramadol 50 mg every 6 hours when necessary for pain. 6. Patient has a history of noncompliance. He will have to be or 5 days for his Coumadin and Lovenox therapy.
[2019-09-05] MEDS: Enoxaparin 150 MG/1 ML Syringe SUBCUT SCH ×2 (11:14→23:04)
[2019-09-05] MEDS ORDERED: Warfarin 5 MG Tab PO ONE (16:00)
[2019-09-05] MEDS ORDERED: Warfarin 5 MG Tab PO SCH (16:00)
[2019-09-05] MEDS: Zolpidem 5 MG Tab PO PRN (21:10)
[2019-09-06] MEDS: traMADol 50 MG Tab PO PRN ×3 (07:30→23:05)
[2019-09-06] MEDS ORDERED: Ibuprofen 600 MG Tab PO PRN (08:22)
--- NOTE | 2019-09-06 08:26 | PCM.PN ---
- General Info Date of Service: 09/06/19 Admission Dx/Problem (Free Text): Patient states he is not short of breath and he has no chest pain. I asked him why he will not get up and go in the [place]. Since he's very depressed. He says he has no place to live and he has no money. He was living with friend but his friend can keep him in the department that's why he got thrown out. He says he doesn't awaiting money. He does not have a job currently. He says his been depressed before. He doesn't know if his knee depression in the family. He says he sad, blue. He denies suicidal ideation, concentration, memory problems. He's requesting the telemetry and oxygen be removed. He also wants to get rid of the IV. He states his low back is been bothering him a little bit. Tramadol's is not helping. - Patient Data Vitals - Most Recent: Last Vital Signs Temp 98.5 F 09/06/19 07:50 Pulse 107 H 09/06/19 07:50 Resp 16 09/06/19 07:50 BP 117/83 09/06/19 07:50 Pulse Ox 98 09/06/19 07:50 Weight - Most Recent: 321 lb 11.2 oz Lab Results Last 24 Hours: Laboratory Results - last 24 hr 09/06/19 Range/Units 06:35 PT 11.6 H (9.0-11.1) sec INR 1.20 (1.00-1.24) Med Orders - Current: Current Medications Enoxaparin Sodium (Lovenox) 150 mg SUBCUT Q12H [facility] Last Admin: 09/05/19 23:04 Dose: 150 mg Sodium Chloride (Saline Flush) 10 ml FLUSH ASDIRECTED PRN PRN Reason: Keep Vein Open Last Admin: 09/04/19 12:30 Dose: 10 ml Tramadol HCl (Ultram) 50 mg PO Q6H PRN PRN Reason: Pain Last Admin: 09/06/19 07:30 Dose: 50 mg Warfarin Sodium (Coumadin Sliding Scale) 1 each PO 1600 [place] Warfarin Sodium (Coumadin) 10 mg PO ONETIME ONE Stop: 09/06/19 16:01 Zolpidem Tartrate (Ambien) 5 mg PO BEDTIME PRN PRN Reason: Insomnia Last Admin: 09/05/19 21:10 Dose: 5 mg Discontinued Medications Enoxaparin Sodium (Lovenox) 150 mg SUBCUT ONETIME ONE Stop: 09/04/19 10:54 Last Admin: 09/04/19 11:04 Dose: 150 mg Hydromorphone HCl (Dilaudid) 0.5 mg IVPUSH Q4H PRN PRN Reason: Pain (severe 7-10) Iopamidol (Isovue-370 (76%)) 100 ml IV . DIRECTED ONE Stop: 09/04/19 09:51 Last Admin: 09/04/19 10:16 Dose: 85 ml Ondansetron HCl (Zofran Odt) 4 mg PO Q8H PRN PRN Reason: nausea, able to take PO Pantoprazole Sodium (Protonix Iv) 40 mg IVPUSH DAILY [facility] Last Admin: 09/04/19 12:28 Dose: 40 mg Warfarin Sodium (Coumadin) 10 mg PO ONETIME ONE Stop: 09/04/19 16:01 Last Admin: 09/04/19 16:25 Dose: 10 mg Warfarin Sodium (Coumadin) 10 mg PO ONETIME ONE Stop: 09/05/19 16:01 Last Admin: 09/05/19 15:11 Dose: 10 mg - Exam General: Alert, Oriented, Cooperative Lungs: Normal Respiratory Effort Psy/Mental Status: Alert, Labile Mood, Depressed Sepsis Event Note - Evaluation Sepsis Screening Result: No Definite Risk - Focused Exam Vital Signs: Vital Signs Temp Pulse Resp BP Pulse Ox Pulse Ox 09/06/19 07:50 98.5 F 107 H 16 117/83 98 09/06/19 01:00 99 09/06/19 00:00 98.0 F 82 16 124/84 98 09/05/19 22:06 94 L Date Exam was Performed: 09/06/19 Time Exam was Performed: 08:23 - Problem List & Annotations (1) Pulmonary embolism without acute cor pulmonale SNOMED Code(s): 94137389 Code(s): I26.99 - OTHER PULMONARY EMBOLISM WITHOUT ACUTE COR PULMONALE Status: Acute Current Visit: Yes Qualifiers: Pulmonary embolism type: other Chronicity: acute Qualified Code(s): I26.99 - Other pulmonary embolism without acute cor pulmonale (2) Depression SNOMED Code(s): 03688949 Code(s): F32.9 - MAJOR DEPRESSIVE DISORDER, SINGLE EPISODE, UNSPECIFIED Status: Acute Current Visit: Yes (3) Low back pain SNOMED Code(s): 459289769 Code(s): M54.5 - LOW BACK PAIN Status: Acute Current Visit: Yes - Problem List Review Problem List Initiated/Reviewed/Updated: Yes - My Orders Last 24 Hours: My Active Orders 09/05/19 07:50 Zolpidem [Ambien] 5 mg PO BEDTIME PRN traMADol [Ultram] 50 mg PO Q6H PRN 09/06/19 08:21 Discontinue Telemetry Monitoring [Cardiac Monitoring Discontinue] [RC] Click to Edit Discontinue Saline Lock [Peripheral IV Discontinue] [OM.PC] Routine 09/06/19 08:22 Ibuprofen [Motrin] 600 mg PO Q6H PRN 09/06/19 09:00 FLUoxetine [PROzac] 20 mg PO DAILY 09/06/19 16:00 Warfarin [Coumadin] 10 mg PO ONETIME ONE 09/07/19 06:00 INR,PT,PROTHROMBIN TIME [COAG] 0600 09/08/19 06:00 INR,PT,PROTHROMBIN TIME [COAG] 0609/09/19 06:00 INR,PT,PROTHROMBIN TIME [COAG] 0609/10/19 06:00 INR,PT,PROTHROMBIN TIME [COAG] 0600 - Plan Plan:: 1. DC IV, telemetry. 2. Oxygen only if he requests. 3. Stop tramadol and start ibuprofen 600 mg by mouth when necessary for any pain including back pain. 4. Start Prozac 20 mg a day. I explained the side effects and expectations. 5. 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
[2019-09-06] MEDS: FLUoxetine 20 MG Cap PO SCH (08:35)
[2019-09-06] MEDS: Enoxaparin 150 MG/1 ML Syringe SUBCUT SCH ×2 (10:00→23:04)
[2019-09-06] MEDS ORDERED: Warfarin 5 MG Tab PO ONE (16:00)
[2019-09-06] MEDS: Zolpidem 5 MG Tab PO PRN (21:18)
[2019-09-07] MEDS: FLUoxetine 20 MG Cap PO SCH (09:42)
--- NOTE | 2019-09-07 09:58 | PCM.PN ---
- General Info Date of Service: 09/07/19 Admission Dx/Problem (Free Text): He states his ankles bother him little bit. He says he had a little chest discomfort and shortness breath is now gone. He refuses oxygen except for last night he wanted some on but today does not. He refuses telemetry. - Patient Data Vitals - Most Recent: Last Vital Signs Temp 97.9 F 09/06/19 23:10 Pulse 92 09/06/19 23:10 Resp 16 09/06/19 23:10 BP 150/94 H 09/06/19 23:10 Pulse Ox 94 L 09/06/19 23:10 Weight - Most Recent: 321 lb 11.2 oz Lab Results Last 24 Hours: Laboratory Results - last 24 hr 09/07/19 Range/Units 06:30 PT 12.6 H (9.0-11.1) sec INR 1.30 H (1.00-1.24) Med Orders - Current: Current Medications Enoxaparin Sodium (Lovenox) 150 mg SUBCUT Q12H [facility] Last Admin: 09/06/19 23:04 Dose: 150 mg Fluoxetine HCl (Prozac) 20 mg PO DAILY [facility] Last Admin: 09/07/19 09:42 Dose: 20 mg Sodium Chloride (Saline Flush) 10 ml FLUSH ASDIRECTED PRN PRN Reason: Keep Vein Open Last Admin: 09/04/19 12:30 Dose: 10 ml Tramadol HCl (Ultram) 50 mg PO Q6H PRN PRN Reason: Pain Last Admin: 09/06/19 23:05 Dose: 50 mg Warfarin Sodium (Coumadin Sliding Scale) 1 each PO 1600 [facility] Zolpidem Tartrate (Ambien) 5 mg PO BEDTIME PRN PRN Reason: Insomnia Last Admin: 09/06/19 21:18 Dose: 5 mg Discontinued Medications Enoxaparin Sodium (Lovenox) 150 mg SUBCUT ONETIME ONE Stop: 09/04/19 10:54 Last Admin: 09/04/19 11:04 Dose: 150 mg Hydromorphone HCl (Dilaudid) 0.5 mg IVPUSH Q4H PRN PRN Reason: Pain (severe 7-10) Ibuprofen (Motrin) 600 mg PO Q6H PRN PRN Reason: Pain Iopamidol (Isovue-370 (76%)) 100 ml IV . DIRECTED ONE Stop: 09/04/19 09:51 Last Admin: 09/04/19 10:16 Dose: 85 ml Ondansetron HCl (Zofran Odt) 4 mg PO Q8H PRN PRN Reason: nausea, able to take PO Pantoprazole Sodium (Protonix Iv) 40 mg IVPUSH DAILY [facility] Last Admin: 09/04/19 12:28 Dose: 40 mg Warfarin Sodium (Coumadin) 10 mg PO ONETIME ONE Stop: 09/04/19 16:01 Last Admin: 09/04/19 16:25 Dose: 10 mg Warfarin Sodium (Coumadin) 10 mg PO ONETIME ONE Stop: 09/05/19 16:01 Last Admin: 09/05/19 15:11 Dose: 10 mg Warfarin Sodium (Coumadin) 10 mg PO ONETIME ONE Stop: 09/06/19 16:01 Last Admin: 09/06/19 16:15 Dose: 10 mg - Exam General: Alert, Oriented, Cooperative Lungs: Clear to Auscultation, Normal Respiratory Effort Extremities: No Pedal Edema Sepsis Event Note - Evaluation Sepsis Screening Result: No Definite Risk - Focused Exam Vital Signs: Vital Signs Temp Pulse Resp BP Pulse Ox 09/06/19 23:10 97.9 F 92 16 150/94 H 94 L Date Exam was Performed: 09/07/19 Time Exam was Performed: 09:57 - Problem List & Annotations (1) Pulmonary embolism without acute cor pulmonale SNOMED Code(s): 77145015 Code(s): I26.99 - OTHER PULMONARY EMBOLISM WITHOUT ACUTE COR PULMONALE Status: Acute Current Visit: Yes Qualifiers: Pulmonary embolism type: other Chronicity: acute Qualified Code(s): I26.99 - Other pulmonary embolism without acute cor pulmonale (2) Depression SNOMED Code(s): 17390750 Code(s): F32.9 - MAJOR DEPRESSIVE DISORDER, SINGLE EPISODE, UNSPECIFIED Status: Acute Current Visit: Yes (3) Low back pain SNOMED Code(s): 812429521 Code(s): M54.5 - LOW BACK PAIN Status: Acute Current Visit: Yes - Problem List Review Problem List Initiated/Reviewed/Updated: Yes - My Orders Last 24 Hours: My Active Orders 09/06/19 09:00 FLUoxetine [PROzac] 20 mg PO DAILY 09/08/19 06:00 INR,PT,PROTHROMBIN TIME [COAG] 59909/09/19 06:00 INR,PT,PROTHROMBIN TIME [COAG] 59909/10/19 06:00 INR,PT,PROTHROMBIN TIME [COAG] 599 - Plan Plan:: 1. Continue Coumadin adjusting up until his INR is between 2 and 3. 2. Social work to see in regards to his social situation been homeless.
[2019-09-07] MEDS ORDERED: Naproxen 500 MG Tab PO SCH (10:10)
[2019-09-07] MEDS: Enoxaparin 150 MG/1 ML Syringe SUBCUT SCH ×2 (11:26→21:59)
[2019-09-07] MEDS: Naproxen 500 MG Tab PO SCH ×2 (13:43→21:59)
[2019-09-07] MEDS ORDERED: Warfarin 5 MG Tab PO SCH (16:00)
[2019-09-07] MEDS: Zolpidem 5 MG Tab PO PRN (22:04)
--- NOTE | 2019-09-08 07:59 | PCM.PN ---
- General Info Date of Service: 09/08/19 Admission Dx/Problem (Free Text): Patient without concerns today. He denies shortness of breath, chest pain. Does say his ankles are swollen and have some pain. - Patient Data Vitals - Most Recent: Last Vital Signs Temp 97.9 F 09/07/19 16:00 Pulse 88 09/07/19 16:00 Resp 16 09/08/19 07:53 BP 120/88 09/08/19 07:53 Pulse Ox 92 L 09/08/19 07:53 Weight - Most Recent: 321 lb 11.2 oz Lab Results Last 24 Hours: Laboratory Results - last 24 hr 09/08/19 Range/Units 06:10 PT 20.0 H (9.0-11.1) sec INR 2.07 H (1.00-1.24) Med Orders - Current: Current Medications Enoxaparin Sodium (Lovenox) 150 mg SUBCUT Q12H [facility] Last Admin: 09/07/19 21:59 Dose: 150 mg Fluoxetine HCl (Prozac) 20 mg PO DAILY [facility] Last Admin: 09/07/19 09:42 Dose: 20 mg Naproxen (Naprosyn) 500 mg PO BID [facility] Last Admin: 09/07/19 21:59 Dose: 500 mg Sodium Chloride (Saline Flush) 10 ml FLUSH ASDIRECTED PRN PRN Reason: Keep Vein Open Last Admin: 09/04/19 12:30 Dose: 10 ml Tramadol HCl (Ultram) 50 mg PO Q6H PRN PRN Reason: Pain Last Admin: 09/06/19 23:05 Dose: 50 mg Warfarin Sodium (Coumadin Sliding Scale) 1 each PO 1600 [facility] Zolpidem Tartrate (Ambien) 5 mg PO BEDTIME PRN PRN Reason: Insomnia Last Admin: 09/07/19 22:04 Dose: 5 mg Discontinued Medications Enoxaparin Sodium (Lovenox) 150 mg SUBCUT ONETIME ONE Stop: 09/04/19 10:54 Last Admin: 09/04/19 11:04 Dose: 150 mg Hydromorphone HCl (Dilaudid) 0.5 mg IVPUSH Q4H PRN PRN Reason: Pain (severe 7-10) Ibuprofen (Motrin) 600 mg PO Q6H PRN PRN Reason: Pain Iopamidol (Isovue-370 (76%)) 100 ml IV . DIRECTED ONE Stop: 09/04/19 09:51 Last Admin: 09/04/19 10:16 Dose: 85 ml Naproxen (Naprosyn) 500 mg PO BID [facility] Last Admin: 09/07/19 11:26 Dose: Not Given Ondansetron HCl (Zofran Odt) 4 mg PO Q8H PRN PRN Reason: nausea, able to take PO Pantoprazole Sodium (Protonix Iv) 40 mg IVPUSH DAILY [facility] Last Admin: 09/04/19 12:28 Dose: 40 mg Warfarin Sodium (Coumadin) 10 mg PO ONETIME ONE Stop: 09/04/19 16:01 Last Admin: 09/04/19 16:25 Dose: 10 mg Warfarin Sodium (Coumadin) 10 mg PO ONETIME ONE Stop: 09/05/19 16:01 Last Admin: 09/05/19 15:11 Dose: 10 mg Warfarin Sodium (Coumadin) 10 mg PO ONETIME ONE Stop: 09/06/19 16:01 Last Admin: 09/06/19 16:15 Dose: 10 mg Warfarin Sodium (Coumadin) 20 mg PO 1600 [facility] Stop: 09/07/19 16:01 Last Admin: 09/07/19 15:17 Dose: 20 mg - Exam General: Alert, Oriented, Cooperative Lungs: Clear to Auscultation, Normal Respiratory Effort Cardiovascular: Regular Rate, Regular Rhythm, No Murmurs Extremities: No Pedal Edema Psy/Mental Status: Alert, Normal Affect, Normal Mood Sepsis Event Note - Evaluation Sepsis Screening Result: No Definite Risk - Focused Exam Vital Signs: Vital Signs Resp BP Pulse Ox 09/08/19 07:53 16 120/88 92 L 09/08/19 00:00 16 Date Exam was Performed: 09/08/19 Time Exam was Performed: 07:57 - Problem List & Annotations (1) Pulmonary embolism without acute cor pulmonale SNOMED Code(s): 01346122 Code(s): I26.99 - OTHER PULMONARY EMBOLISM WITHOUT ACUTE COR PULMONALE Status: Acute Current Visit: Yes Qualifiers: Pulmonary embolism type: other Chronicity: acute Qualified Code(s): I26.99 - Other pulmonary embolism without acute cor pulmonale (2) Depression SNOMED Code(s): 98959090 Code(s): F32.9 - MAJOR DEPRESSIVE DISORDER, SINGLE EPISODE, UNSPECIFIED Status: Acute Current Visit: Yes (3) Low back pain SNOMED Code(s): 460888762 Code(s): M54.5 - LOW BACK PAIN Status: Acute Current Visit: Yes (4) Homelessness SNOMED Code(s): 32340726 Code(s): Z59.0 - HOMELESSNESS Status: Acute Current Visit: Yes - Problem List Review Problem List Initiated/Reviewed/Updated: Yes - My Orders Last 24 Hours: My Active Orders 09/07/19 13:30 Naproxen [Naprosyn] 500 mg PO BID 09/08/19 08:00 VL Duplex Lwr Ext Veins Comp [US] Routine 09/09/19 06:00 INR,PT,PROTHROMBIN TIME [COAG] 0600 09/10/19 06:00 INR,PT,PROTHROMBIN TIME [[facility]] 0600 - Plan Plan:: 1. DC Lovenox because his INR is over 2 2. Pharmacy to set up home dosing for Coumadin. 3. Ultrasound legs bilateral today. 4. Patient is ready for discharge as soon as we find a place for him to go after his ultrasounds. 5. Will continue the antidepressant outpatient.
[2019-09-08] MEDS: FLUoxetine 20 MG Cap PO SCH (08:30)
[2019-09-08] MEDS: Naproxen 500 MG Tab PO SCH (08:30)
[2019-09-08] MEDS: traMADol 50 MG Tab PO PRN (15:26)
[2019-09-08] MEDS ORDERED: Warfarin 10 MG, Warfarin 2.5 MG PO ONE ×2 (16:00)
[2019-09-08] MEDS ORDERED: Lidocaine 2% Viscous Solution 100 ML Bottle PO PRN ×3 (21:17→21:40)
[2019-09-08] MEDS ORDERED: Lidocaine 2% Viscous Solution 15 ML Cup PO PRN (22:07)
[2019-09-09] MEDS: Naproxen 500 MG Tab PO SCH ×2 (01:03→09:09)
--- NOTE | 2019-09-09 08:19 | PCM.PN ---
- General Info Date of Service: 09/09/19 Admission Dx/Problem (Free Text): Patient without concerns. He denies chest pain, shortness of breath or leg swelling today. Denies depression. - Patient Data Vitals - Most Recent: Last Vital Signs Temp 97.8 F 09/09/19 00:00 Pulse 90 09/09/19 00:00 Resp 18 09/09/19 00:00 BP 128/85 09/09/19 00:00 Pulse Ox 98 09/09/19 00:00 Weight - Most Recent: 321 lb 11.2 oz Lab Results Last 24 Hours: Laboratory Results - last 24 hr 09/09/19 Range/Units 06:12 PT 25.1 H (9.0-11.1) sec INR 2.61 H (1.00-1.24) Med Orders - Current: Current Medications Fluoxetine HCl (Prozac) 20 mg PO DAILY [facility] Last Admin: 09/08/19 08:30 Dose: 20 mg Lidocaine HCl (Xylocaine 2% Viscous) 15 ml PO Q3H PRN PRN Reason: Pain Naproxen (Naprosyn) 500 mg PO BID [facility] Last Admin: 09/09/19 01:03 Dose: Not Given Sodium Chloride (Saline Flush) 10 ml FLUSH ASDIRECTED PRN PRN Reason: Keep Vein Open Last Admin: 09/04/19 12:30 Dose: 10 ml Tramadol HCl (Ultram) 50 mg PO Q6H PRN PRN Reason: Pain Last Admin: 09/08/19 15:26 Dose: 50 mg Warfarin Sodium (Coumadin Sliding Scale) 1 each PO 1600 [facility] Warfarin Sodium (Coumadin) 10 mg PO 1600 [facility] Zolpidem Tartrate (Ambien) 5 mg PO BEDTIME PRN PRN Reason: Insomnia Last Admin: 09/07/19 22:04 Dose: 5 mg Discontinued Medications Enoxaparin Sodium (Lovenox) 150 mg SUBCUT ONETIME ONE Stop: 09/04/19 10:54 Last Admin: 09/04/19 11:04 Dose: 150 mg Enoxaparin Sodium (Lovenox) 150 mg SUBCUT Q12H [facility] Last Admin: 09/07/19 21:59 Dose: 150 mg Hydromorphone HCl (Dilaudid) 0.5 mg IVPUSH Q4H PRN PRN Reason: Pain (severe 7-10) Ibuprofen (Motrin) 600 mg PO Q6H PRN PRN Reason: Pain Iopamidol (Isovue-370 (76%)) 100 ml IV . DIRECTED ONE Stop: 09/04/19 09:51 Last Admin: 09/04/19 10:16 Dose: 85 ml Lidocaine HCl (Xylocaine 2% Viscous) 15 ml PO Q1H PRN PRN Reason: Pain Lidocaine HCl (Xylocaine 2% Viscous) 15 ml PO Q3H PRN PRN Reason: Pain Naproxen (Naprosyn) 500 mg PO BID [facility] Last Admin: 09/07/19 11:26 Dose: Not Given Ondansetron HCl (Zofran Odt) 4 mg PO Q8H PRN PRN Reason: nausea, able to take PO Pantoprazole Sodium (Protonix Iv) 40 mg IVPUSH DAILY [facility] Last Admin: 09/04/19 12:28 Dose: 40 mg Warfarin Sodium (Coumadin) 10 mg PO ONETIME ONE Stop: 09/04/19 16:01 Last Admin: 09/04/19 16:25 Dose: 10 mg Warfarin Sodium (Coumadin) 10 mg PO ONETIME ONE Stop: 09/05/19 16:01 Last Admin: 09/05/19 15:11 Dose: 10 mg Warfarin Sodium (Coumadin) 10 mg PO ONETIME ONE Stop: 09/06/19 16:01 Last Admin: 09/06/19 16:15 Dose: 10 mg Warfarin Sodium (Coumadin) 20 mg PO 1600 [facility] Stop: 09/07/19 16:01 Last Admin: 09/07/19 15:17 Dose: 20 mg Warfarin Sodium 10 mg/ (Warfarin Sodium 2.5 mg) 12.5 mg PO ONETIME ONE Stop: 09/08/19 16:01 Last Admin: 09/08/19 15:45 Dose: 12.5 mg - Exam General: Alert, Oriented, Cooperative Lungs: Clear to Auscultation, Normal Respiratory Effort. No: Crackles, Rales, Rhonchi Cardiovascular: Regular Rate, Regular Rhythm, No Murmurs Sepsis Event Note - Evaluation Sepsis Screening Result: No Definite Risk - Focused Exam Vital Signs: Vital Signs Temp Pulse Resp BP Pulse Ox 09/09/19 00:00 97.8 F 90 18 128/85 98 Date Exam was Performed: 09/09/19 Time Exam was Performed: 08:17 - Problem List & Annotations (1) Pulmonary embolism without acute cor pulmonale SNOMED Code(s): 36643087 Code(s): I26.99 - OTHER PULMONARY EMBOLISM WITHOUT ACUTE COR PULMONALE Status: Acute Current Visit: Yes Qualifiers: Pulmonary embolism type: other Chronicity: acute Qualified Code(s): I26.99 - Other pulmonary embolism without acute cor pulmonale (2) Depression SNOMED Code(s): 63542699 Code(s): F32.9 - MAJOR DEPRESSIVE DISORDER, SINGLE EPISODE, UNSPECIFIED Status: Acute Current Visit: Yes (3) Low back pain SNOMED Code(s): 113050274 Code(s): M54.5 - LOW BACK PAIN Status: Acute Current Visit: Yes (4) Homelessness SNOMED Code(s): 54151482 Code(s): Z59.0 - HOMELESSNESS Status: Acute Current Visit: Yes - Problem List Review Problem List Initiated/Reviewed/Updated: Yes - My Orders Last 24 Hours: My Active Orders 09/09/19 16:00 Warfarin [Coumadin] 10 mg PO 1600 09/10/19 06:00 INR,PT,PROTHROMBIN TIME [[facility]] 0600 - Plan Plan:: 1. Discharged today. 2. Social work has obtained a ride for him to go the pharmacy and then to the bus stop he'll go to [place]. He has a place to stay. 3. he needs to have his INR checked in 2 days ago go home on 10 mg of Coumadin a day. 4. Again reiterated with patient importance of staying on his anticoagulation and the consequences if he does not. He understands he states. 5. Patient decided to defer the ultrasounds of the leg yesterday.
--- NOTE | 2019-09-09 08:29 | PCM.DCSUM1 ---
Discharge Summary - Hospital Course Free Text/Narrative:: Hospital course-patient was put on Lovenox milligram per kilogram twice a day subcutaneous. The pharmacist called [facility] or he was supposed to be getting his medicines from. They stated he never picked up his Lovenox or Coumadin. We started him on 10 mg of Coumadin a day. Patient was not hypoxic when he was here. The CT scan was reported as bilateral PEs with no left heart strain. We don't have echo here every day so no echo was done. 10 mg of Coumadin were started and his initial INR is 1.06. Day #2 the INR is 1.20 and he was given 10 mg again. Day #3 is 1.30 so he is given 20 milk grams per the sliding scale. Day 4 he INR is 2.07weeks Coumadin decreased to 12.5 mg a day. On discharge his INR is 2.61 mg he'll be given 10 mg and sent home on this dose. He should also is weepy and has been having depression. He denies suicidal ideation, concentration problems, memory problems or anxiety. He was started on Prozac 20 mg a day. He does have a history of homelessness and noncompliance. family support worker worked with him on placement. His mother legibly stated to the web content & social media manager that she could go [place] but not stay with her. They says he has a place to stay and we will pay for a taxi ride to the pharmacy to fruit or nut picker his medicine today and then a bus ride [place] and to take it back to [place]. I told the patient that he needs his INR checked in 2 days. Also reiterated the importance of staying on his anticoagulation and the consequences if he does not. He says he understands. Brief History: This is a 34-year-old male patient the came into the ER with chest pain and shortness of breath. He was found to have a pulmonary embolism. He has a history of pulmonary embolisms starting way back in 2014. He's been on Eliquis and also Coumadin. He says he had a PE in [place] last fall. He says he moved up. He stayed with a friend. He states that they could get him his Coumadin and off it for a week and a half. Last week he's been having some chest pain and some shortness of breath. He also has some runny nose and a cough. Denies leg swelling. by radiology is bilateral PE. He states he does not have a doctor in town. He says [facility] is managing his Coumadin. He says they just quit giving it to him. Diagnosis: Stroke: No - Discharge Data Discharge Date: 09/09/19 Discharge Disposition: Home, Self-Care 01 Condition: Good - Referral to Home Health Primary Care Physician: PCP None - Discharge Diagnosis/Problem(s) (1) Pulmonary embolism without acute cor pulmonale SNOMED Code(s): 35644687 ICD Code: I26.99 - OTHER PULMONARY EMBOLISM WITHOUT ACUTE COR PULMONALE Status: Acute Current Visit: Yes Qualifiers: Pulmonary embolism type: other Chronicity: acute Qualified Code(s): I26.99 - Other pulmonary embolism without acute cor pulmonale (2) Depression SNOMED Code(s): 17882459 ICD Code: F32.9 - MAJOR DEPRESSIVE DISORDER, SINGLE EPISODE, UNSPECIFIED Status: Acute Current Visit: Yes (3) Low back pain SNOMED Code(s): 086757933 ICD Code: M54.5 - LOW BACK PAIN Status: Acute Current Visit: Yes (4) Homelessness SNOMED Code(s): 67382964 ICD Code: Z59.0 - HOMELESSNESS Status: Acute Current Visit: Yes - Patient Summary/Data Consults: Consultations 09/04/19 11:14 Consult to Case Management/Glove Stitcher [CONS] Routine Comment: Physician Instructions: Service(s) to be Consulted: Case Manage&Social Servic Reason for Consult: Homeless, Insurance - Patient Instructions Diet, Other: Low leafy green vegetables Activity: As Tolerated Driving: May Drive Today Showering/Bathing: May Shower Other/Special Instructions: 1. Recheck with a provider in the [facility] area in 2 days with an INR. 2. Please send a CT scan, discharge summary, H&P, ER note and Coumadin schedule with the patient and had to take to his appointment. - Discharge Plan Prescriptions/Med Rec: FLUoxetine HCl [Prozac] 20 mg PO DAILY #30 capsule Warfarin [Coumadin] 10 mg PO 1600 #30 tablet Home Medications: Home Meds FLUoxetine HCl [Prozac] 20 mg PO DAILY #30 capsule 09/09/19 [Rx] Warfarin [Coumadin] 10 mg PO 1600 #30 tablet 09/09/19 [Rx] Patient Handouts: Vitamin K Foods and Warfarin, What You Need to Know About Warfarin, Warfarin Coagulopathy, Warfarin tablets, Venous Thromboembolism Prevention Forms: ED Department Discharge Referrals: PCP,None [Primary Care Provider] - - Discharge Summary/Plan Comment DC Time >30 min.: No - Patient Data Vitals - Most Recent: Last Vital Signs Temp 97.8 F 09/09/19 00:00 Pulse 90 09/09/19 00:00 Resp 18 09/09/19 00:00 BP 128/85 09/09/19 00:00 Pulse Ox 98 09/09/19 00:00 Weight - Most Recent: 321 lb 11.2 oz Lab Results - Last 24 hrs: Laboratory Results - last 24 hr 09/09/19 Range/Units 06:12 PT 25.1 H (9.0-11.1) sec INR 2.61 H (1.00-1.24) Med Orders - Current: Current Medications Fluoxetine HCl (Prozac) 20 mg PO DAILY [facility] Last Admin: 09/08/19 08:30 Dose: 20 mg Lidocaine HCl (Xylocaine 2% Viscous) 15 ml PO Q3H PRN PRN Reason: Pain Naproxen (Naprosyn) 500 mg PO BID [facility] Last Admin: 09/09/19 01:03 Dose: Not Given Sodium Chloride (Saline Flush) 10 ml FLUSH ASDIRECTED PRN PRN Reason: Keep Vein Open Last Admin: 09/04/19 12:30 Dose: 10 ml Tramadol HCl (Ultram) 50 mg PO Q6H PRN PRN Reason: Pain Last Admin: 09/08/19 15:26 Dose: 50 mg Warfarin Sodium (Coumadin Sliding Scale) 1 each PO 1600 [facility] Warfarin Sodium (Coumadin) 10 mg PO 1600 [facility] Zolpidem Tartrate (Ambien) 5 mg PO BEDTIME PRN PRN Reason: Insomnia Last Admin: 09/07/19 22:04 Dose: 5 mg Discontinued Medications Enoxaparin Sodium (Lovenox) 150 mg SUBCUT ONETIME ONE Stop: 09/04/19 10:54 Last Admin: 09/04/19 11:04 Dose: 150 mg Enoxaparin Sodium (Lovenox) 150 mg SUBCUT Q12H [facility] Last Admin: 09/07/19 21:59 Dose: 150 mg Hydromorphone HCl (Dilaudid) 0.5 mg IVPUSH Q4H PRN PRN Reason: Pain (severe 7-10) Ibuprofen (Motrin) 600 mg PO Q6H PRN PRN Reason: Pain Iopamidol (Isovue-370 (76%)) 100 ml IV . DIRECTED ONE Stop: 09/04/19 09:51 Last Admin: 09/04/19 10:16 Dose: 85 ml Lidocaine HCl (Xylocaine 2% Viscous) 15 ml PO Q1H PRN PRN Reason: Pain Lidocaine HCl (Xylocaine 2% Viscous) 15 ml PO Q3H PRN PRN Reason: Pain Naproxen (Naprosyn) 500 mg PO BID [facility] Last Admin: 09/07/19 11:26 Dose: Not Given Ondansetron HCl (Zofran Odt) 4 mg PO Q8H PRN PRN Reason: nausea, able to take PO Pantoprazole Sodium (Protonix Iv) 40 mg IVPUSH DAILY [facility] Last Admin: 09/04/19 12:28 Dose: 40 mg Warfarin Sodium (Coumadin) 10 mg PO ONETIME ONE Stop: 09/04/19 16:01 Last Admin: 09/04/19 16:25 Dose: 10 mg Warfarin Sodium (Coumadin) 10 mg PO ONETIME ONE Stop: 09/05/19 16:01 Last Admin: 09/05/19 15:11 Dose: 10 mg Warfarin Sodium (Coumadin) 10 mg PO ONETIME ONE Stop: 09/06/19 16:01 Last Admin: 09/06/19 16:15 Dose: 10 mg Warfarin Sodium (Coumadin) 20 mg PO 1600 [facility] Stop: 09/07/19 16:01 Last Admin: 09/07/19 15:17 Dose: 20 mg Warfarin Sodium 10 mg/ (Warfarin Sodium 2.5 mg) 12.5 mg PO ONETIME ONE Stop: 09/08/19 16:01 Last Admin: 09/08/19 15:45 Dose: 12.5 mg
[2019-09-09] MEDS: FLUoxetine 20 MG Cap PO SCH (09:09)
[2019-09-09 09:36] VITALS: BP 129/84
[2019-09-09 09:56] VITALS: PULSE 99
[2019-09-09] MEDS ORDERED: Warfarin 5 MG Tab PO SCH (16:00)
== END 2019-09-09 14:20 | disposition home or self-care (01) | DRG 176 ==
LOC: FB.ED 09:41 → FB.MS 11:01
PROVIDERS: ADMIT Family Medicine; ATTEND Family Medicine
DX: I26.99 Other pulmonary embolism without acute cor pulmonale (principal); I10 Essential (primary) hypertension; G47.30 Sleep apnea, unspecified; M10.9 Gout, unspecified; M54.5 Low back pain; I48.91 Unspecified atrial fibrillation; F32.9 Major depressive disorder, single episode, unspecified; Z79.01 Long term (current) use of anticoagulants; Z59.0 Homelessness; Z87.891 Personal history of nicotine dependence; Z90.49 Acquired absence of other specified parts of digestive tract; Z91.19 Patient's noncompliance with other medical treatment and regimen
CPT/HCPCS: 36415; 71275; 80048; 80053; 84484; 85025; 85379; 85610; 85730; 93005; 93010; 99283; 99285-25; A9270-GY; C9113; J1650; Q9967